=== PATIENT | female | born 1965 | race Caucasian/White ===

== ENCOUNTER 2019-04-04 08:12 | Outpatient (CLI) | payer OTHER, SELFPAY ==
--- NOTE | ~2019-04-04 | MM_ITS ---
EXAMINATION: MM screening vickie BI w savanah HISTORY: Screening mammogram TECHNIQUE: Craniocaudal and mediolateral oblique 3-D tomosynthesis images were obtained and synthetic 2-D images were generated. CAD analysis was submitted and interpreted. COMPARISON: Comparison to multiple prior studies sequentially, with oldest reviewed study dated 07/17. BREAST PARENCHYMAL COMPOSITION: There are scattered areas of fibroglandular density. FINDINGS: There is no evidence of suspicious mass, calcification, or architectural distortion to sugg est malignancy in either breast. There has been no suspicious interval change. IMPRESSION: 1. No mammographic evidence of malignancy. 2. Recommend routine screening mammography in one year. BI-RADS Category 1: Negative Reviewed, dictated and finalized at location A. 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
== END 2019-04-04 08:13 | disposition home or self-care (01) ==
LOC: ANHIMG 08:20
PROVIDERS: PCP Emergency Medicine
DX: Z12.31 Encounter for screening mammogram for malignant neoplasm of breast (principal)
CPT/HCPCS: 77063; 77067

== ENCOUNTER 2020-03-14 15:39 | Outpatient (CLI) | payer OTHER, SELFPAY ==
--- NOTE | ~2020-03-14 | XR_ITS ---
EXAMINATION: XR knee LT 3V DATE: 03/14/2020 16:15 INDICATION: Left knee arthroplasty. TECHNIQUE: 4 views of left knee were obtained. COMPARISON: Left knee radiographs 01/22/2019 FINDINGS: There is a total left knee arthroplasty with patellar resurfacing in near-anatomic alignmen t. No periprosthetic lucency to suggest loosening or infection. No fracture. There is a small knee rod int effusion. IMPRESSION: 1. Total left knee arthroplasty in near-anatomic alignment. 2. Small left knee joint effusion. Reviewed, dictated and finalized at location A. 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
--- NOTE | ~2020-03-14 | XR_ITS ---
EXAMINATION: XR knee RT 3V DATE: 03/14/2020 16:15 INDICATION: Right knee arthroplasty. TECHNIQUE: 3 views of right knee were obtained. COMPARISON: Right knee radiographs 10/06/2018 FINDINGS: There is a total right knee arthroplasty with patellar resurfacing in near-anatomic alignme nt. No fracture. No periprosthetic lucency to suggest loosening or infection. There is a small knee j oint effusion. IMPRESSION: 1. Total right knee arthroplasty in near-anatomic alignment. 2. Small right knee joint effusion. Reviewed, dictated and finalized at location A. TS INTERNSHIP
== END 2020-03-14 15:40 | disposition home or self-care (01) ==
PROVIDERS: PCP Emergency Medicine; Visit Provider Orthopaedic Surgery
DX: Z96.653 Presence of artificial knee joint, bilateral (principal); Z96.651 Presence of right artificial knee joint; M25.461 Effusion, right knee
CPT/HCPCS: 73562

== ENCOUNTER → 2020-05-06 08:30 | Outpatient (REF) | payer OTHER, SELFPAY | LOC: ANHLAB 08:30 | PROVIDERS: PCP Emergency Medicine; Visit Provider Nurse Practitioner | DX: C44.529 Squamous cell carcinoma of skin of other part of trunk (principal) | CPT/HCPCS: 88305 ==

== ENCOUNTER → 2020-05-26 10:00 | Outpatient (REF) | payer OTHER, SELFPAY | LOC: ANHLAB 10:00 | PROVIDERS: PCP Emergency Medicine; Visit Provider Nurse Practitioner | DX: L98.9 Disorder of the skin and subcutaneous tissue, unspecified (principal) | CPT/HCPCS: 88305; 88331 ==

== ENCOUNTER 2020-07-09 08:32 | Outpatient (CLI) | payer OTHER, SELFPAY ==
[2020-07-09 09:10] LABS: Alanine Aminotransferase 10 U/L (4-35); Alkaline Phosphatase 69 U/L (38-126); Anion Gap 5 mmol/L (8-16); Aspartate Amino Transferase 23 U/L (14-36); Bilirubin,Total 0.4 mg/dL (0.2-1.3); Blood Urea Nitrogen 18 mg/dL (7-17); Carbon Dioxide 28 mmol/L (22-30); Chloride 108 mmol/L (98-107); Cholesterol 199 mg/dL (0-200); Estimated Glomerular Filt Rate > 60; Glucose 95 mg/dL (65-105); HDL Direct 71 mg/dL; Potassium 4.6 mmol/L (3.4-5.0); Sodium 141 mmol/L (137-145); Triglycerides 59 mg/dL (<150)
[2020-07-09 09:21] LABS: LDL Cholesterol Direct 93 mg/dL
[2020-07-15 13:51] LABS: Vitamin D 1,25 (OH)2 Total 25 pg/mL (18-72); Vitamin D2 1,25 (OH)2 <8 pg/mL; Vitamin D3 1,25 (OH)2 25 pg/mL
== END 2020-07-09 08:33 | disposition home or self-care (01) ==
PROVIDERS: PCP Emergency Medicine; Visit Provider Emergency Medicine
DX: M83.9 Adult osteomalacia, unspecified (principal); Z13.220 Encounter for screening for lipoid disorders
CPT/HCPCS: 36415; 80053; 80061; 82652

== ENCOUNTER 2020-07-15 15:53 | Outpatient (CLI) | payer OTHER, SELFPAY ==
--- NOTE | ~2020-07-15 | MM_ITS ---
EXAMINATION: MM screening vickie BI w savanah HISTORY: Screening mammogram TECHNIQUE: Craniocaudal and mediolateral oblique 3-D tomosynthesis images were obtained and synthetic 2-D images were generated. CAD analysis was submitted and interpreted. COMPARISON: April 04, 2019, March 30, 2018, March 28, 2017 bilateral digital screening mammo gram examinations BREAST PARENCHYMAL COMPOSITION: There are scattered areas of fibroglandular density. FINDINGS: There is no evidence of suspicious mass, calcification, or architectural distortion to sugg est malignancy in either breast. There has been no suspicious interval change. IMPRESSION: 1. No mammographic evidence of malignancy. 2. Recommend routine screening mammography in one year. BI-RADS Category 1: Negative Reviewed, dictated and finalized at location A.
== END 2020-07-15 15:54 | disposition home or self-care (01) ==
LOC: ANHIMG 15:56
PROVIDERS: PCP Emergency Medicine; Visit Provider Obstetrics & Gynecology
DX: Z12.31 Encounter for screening mammogram for malignant neoplasm of breast (principal)
CPT/HCPCS: 77063; 77067

== ENCOUNTER 2021-09-15 07:35 | Outpatient (CLI) | payer BC, SELFPAY ==
--- NOTE | ~2021-09-15 | MM_ITS ---
EXAMINATION: MM screening [facility] BI w savanah HISTORY: Screening mammogram TECHNIQUE: Craniocaudal and mediolateral oblique 3-D tomosynthesis images were obtained and synthetic 2-D images were generated. CAD analysis was submitted and interpreted. COMPARISON: 07/15/2020, 04/04/2019, 03/30/2018 BREAST PARENCHYMAL COMPOSITION: The breasts are heterogeneously dense, which may obscure small masses . FINDINGS: There is no suspicious mass, calcification, or architectural distortion to suggest malignan cy in either breast. There has been no suspicious interval change. IMPRESSION: 1. No mammographic evidence of malignancy. 2. Recommend routine screening mammography in one year. BI-RADS Category 1: Negative Reviewed, dictated and finalized at location A.
== END 2021-09-15 07:36 | disposition home or self-care (01) ==
PROVIDERS: PCP Emergency Medicine; Visit Provider Obstetrics & Gynecology
DX: Z12.31 Encounter for screening mammogram for malignant neoplasm of breast (principal)
CPT/HCPCS: 77063; 77067

== ENCOUNTER 2021-10-26 13:50 | Outpatient (CLI) | payer BC, SELFPAY ==
[2021-10-26 14:32] LABS: Alanine Aminotransferase 17 U/L (6-35); Albumin Level 4.1 g/dL (3.5-5.1); Alkaline Phosphatase 80 U/L (38-126); Anion Gap 8 mmol/L (8-16); Aspartate Amino Transferase 23 U/L (14-36); Bilirubin,Total 0.5 mg/dL (0.2-1.3); Blood Urea Nitrogen 15 mg/dL (7-17); Calcium 8.7 mg/dL (8.4-10.2); Carbon Dioxide 25 mmol/L (22-30); Chloride 104 mmol/L (98-107); Estimated Glomerular Filt Rate > 60; Glucose 95 mg/dL (65-110); Potassium 3.8 mmol/L (3.4-5.0); Sodium 137 mmol/L (137-145)
[2021-10-29 16:53] LABS: Vitamin D 1,25 (OH)2 Total 46 pg/mL (18-72); Vitamin D2 1,25 (OH)2 <8 pg/mL; Vitamin D3 1,25 (OH)2 46 pg/mL
== END 2021-10-26 13:51 | disposition home or self-care (01) ==
LOC: ANHLAB 13:53
PROVIDERS: PCP Emergency Medicine; Visit Provider Emergency Medicine
DX: R53.83 Other fatigue (principal); E83.31 Familial hypophosphatemia; M90.80 Osteopathy in diseases classified elsewhere, unspecified site
CPT/HCPCS: 36415; 80053; 82652

== ENCOUNTER 2022-04-09 08:47 | Emergency (ER) | payer BC, SELFPAY ==
[2022-04-09 09:08] VITALS: BP 129/68; PULSE 91; RESP 16; TEMP 35.8; O2SAT 99
--- NOTE | 2022-04-09 09:28 | ED.URI ---
HPI - URI/Sore Throat General Chief Complaint: Upper Respiratory Infection Stated Complaint: poison inocenico/covid + Time Seen by Provider: 04/09/22 09:28 Source: patient Mode of arrival: ambulatory Limitations: no limitations History of Present Illness HPI Narrative: 56 yo F presents with c/o nasal congestion, chest congestion, cough for 5 days. Tested positive for covid 2 days ago. today having R ear pain. Afebrile. Denies CP and SOB. Also states has been working in garden and has poison inocencio to R wrist, chest and mid back. Using OTC hydrocortisone cream. States she usually gets steroids due to severe allergy to poison inocencio . All systems reviewed and negative except as noted above. Related Data Allergies Allergy/AdvReac Type Severity Reaction Status Date / Time Sulfa (Sulfonamide Allergy Mild Swelling Verified 04/09/22 09:23 Antibiotics) Review of Systems Review of Systems: CONSTITUTIONAL: Denies fever, chills, or sweats. EYES: Denies visual changes, redness, or discharge. ENT: reports rhinorrhea, congestion, sore throat, right ear pain. CARDIOVASCULAR: Denies chest pain, palpitations, or edema. RESPIRATORY: Reports cough. Deniesdyspnea. GASTROINTESTINAL: Denies abdominal pain, nausea, vomiting, or diarrhea. GENITOURINARY: Denies dysuria or hematuria. SKIN: Reports poison inocencio rash and itching. MUSCULOSKELETAL: Denies back pain, joint pain, or myalgia. NEUROLOGIC: Denies headache, numbness, or weakness. PSYCHIATRIC: Denies anxiety or depression. All other systems reviewed are negative, except as documented in HPI. [facility] Past Medical History Medical History Asthma Surgical History Surgical History History of appendectomy History of dilatation and curettage History of total knee replacement Bilateral replacements Right 2018, left 2019 [place] teeth removed Family History Family History Sibling Family history of malignant neoplasm of ovary Mother Family history of Alzheimer's disease Other Family history of arthritis Family history of malignant neoplasm Hypertension Social History Social History Smoking status: Former smoker Smoking end date: 02/07/83 Alcohol intake: current Alcohol use details: occasional Comments At time of signature, agree with nursing past medical, surgical, social and family history. There is no relevant family history pertinent to the presenting complaint. Exam Narrative: GENERAL: This is a well-nourished, well-developed patient, in no apparent distress. HEAD: normocephalic, atraumatic. EYES: PERRL. Sclera clear/white. Vision is grossly intact. EARS: External ears normal, auditory canals clear and without drainage, fluid bilateral TMs without erythema or perforation. NOSE: External nose normal with Clear nasal drainage, moderate congestion, erythema to both nares without swelling. THROAT: Mucous membranes moist, Mild erythema with postnasal drainage. NECK: Neck supple, non-tender without lymphadenopathy, masses or thyromegaly. CARDIOVASCULAR: Regular rate and rhythm without murmurs, gallops, or rubs. RESPIRATORY: Clear to auscultation. Breath sounds equal bilaterally. No wheezes, rales, or rhonchi. SKIN: warm, Dry, intact with no suspicious lesions, good texture and turgor. Raised erythematous rash to right medial aspect wrist, chest and right side mid back. NEURO: awake, alert, and oriented to person, place and time. There were no obvious focal neurologic abnormalities. EXTREMITIES: No joint tenderness, effusion, or edema noted. Course Course Level of Care: Express Care Visit Vital Signs Vital signs: Vital Signs Temperature 35.8 C L 04/09/22 09:08 Pulse Rate 91 04/09/22 09:08 Respiratory Rate 16 04/09/22 09:08 Blood Press
== END 2022-04-09 10:00 | disposition home or self-care (01) ==
PROVIDERS: Emergency Provider Nurse Practitioner Family; PCP Emergency Medicine
DX: U07.1 COVID-19 (principal); L25.5 Unspecified contact dermatitis due to plants, except food; J45.909 Unspecified asthma, uncomplicated; Z87.891 Personal history of nicotine dependence
CPT/HCPCS: 87081; 87880; 99213; G0463

== ENCOUNTER 2022-05-28 16:54 | Outpatient (CLI) | payer BC, SELFPAY ==
--- NOTE | ~2022-05-28 | XR_ITS ---
Clinical Indication: Chronic cough PA and lateral views of the chest: Comparison: 08/16/2012 Findings: The lungs are clear, without evidence of focal consolidation or pleural effusion. Cardiome diastinal silhouette is within normal limits. Bones and soft tissues are unremarkable. Impression: Normal chest. Reviewed, dictated and finalized at location . Impression: Normal chest.
== END 2022-05-28 16:55 | disposition home or self-care (01) ==
LOC: ANHIMG 16:57
PROVIDERS: PCP Emergency Medicine; Visit Provider Emergency Medicine
DX: R05.3 Chronic cough (principal)
CPT/HCPCS: 71046

== ENCOUNTER 2022-12-16 07:15 | Outpatient (CLI) | payer BC, SELFPAY ==
--- NOTE | ~2022-12-16 | MM_ITS ---
EXAMINATION: MM screening vickie BI w savanah HISTORY: Screening TECHNIQUE: Craniocaudal and mediolateral oblique 3-D tomosynthesis images were obtained and synthetic 2-D images were generated. CAD analysis was submitted and interpreted. COMPARISON: Comparison to multiple prior studies sequentially, with oldest reviewed study dated 03/24. BREAST PARENCHYMAL COMPOSITION: Breast composed of scattered areas of fibroglandular density FINDINGS: There is no evidence of suspicious mass, calcification, or architectural distortion to sugg est malignancy in either breast. There has been no suspicious interval change. IMPRESSION: 1. No mammographic evidence of malignancy. 2. Recommend routine screening mammography in one year. BI-RADS Category 1: Negative Reviewed, dictated and finalized at location A. RNEY
== END 2022-12-16 07:16 | disposition home or self-care (01) ==
PROVIDERS: PCP Emergency Medicine; Visit Provider Emergency Medicine
DX: Z12.31 Encounter for screening mammogram for malignant neoplasm of breast (principal)
CPT/HCPCS: 77063; 77067

== ENCOUNTER 2023-01-13 17:42 | Outpatient (CLI) | payer BC, SELFPAY ==
--- NOTE | ~2023-01-13 | XR_ITS ---
EXAMINATION: XR knee LT 3V DATE: 01/13/2023 18:07 INDICATION: Knee pain. TECHNIQUE: 3 views of left knee were obtained. COMPARISON: Left knee radiographs 03/14/2020 FINDINGS: There is a total left knee arthroplasty with patellar resurfacing in near-anatomic alignmen t. No fracture. No periprosthetic lucency to suggest loosening or infection. No knee joint effusion. IMPRESSION: 1. Total left knee arthroplasty in near-anatomic alignment. Reviewed, dictated and finalized at location E. RVISOR DRYING
--- NOTE | ~2023-01-13 | XR_ITS ---
EXAMINATION: XR knee RT 3V DATE: 01/13/2023 18:07 INDICATION: Right knee pain. TECHNIQUE: 3 views of right knee were obtained. COMPARISON: Right knee radiographs 03/14/2020 FINDINGS: There is a total right knee arthroplasty with patellar resurfacing in near-anatomic alignme nt. No fracture. No periprosthetic lucency to suggest loosening or infection. No knee joint effusion. IMPRESSION: 1. Total right knee arthroplasty in near-anatomic alignment. Reviewed, dictated and finalized at location E. 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
== END 2023-01-13 17:43 | disposition home or self-care (01) ==
PROVIDERS: PCP Emergency Medicine; Visit Provider Orthopaedic Surgery
DX: M25.561 Pain in right knee (principal); M25.562 Pain in left knee; Z96.653 Presence of artificial knee joint, bilateral
CPT/HCPCS: 73562

== ENCOUNTER 2023-04-17 14:25 | Outpatient (CLI) | payer BC, SELFPAY ==
--- NOTE | ~2023-04-17 | XR_ITS ---
EXAMINATION: XR knee RT 3V DATE: 04/17/2023 14:44 INDICATION: Presence of artificial knee joint, bilateral. TECHNIQUE: 3 views of right knee including standing views were obtained. COMPARISON: Right knee radiographs 01/13/2023 FINDINGS: There is a total right knee arthroplasty with patellar resurfacing in near-anatomic alignme nt. No fracture. No periprosthetic lucency to suggest loosening or infection. There is a small knee j oint effusion. IMPRESSION: 1. Total right knee arthroplasty in near-anatomic alignment. 2. Small right knee joint effusion. Reviewed, dictated and finalized at location E.
--- NOTE | ~2023-04-17 | XR_ITS ---
EXAMINATION: XR knee LT 3V DATE: 04/17/2023 14:44 INDICATION: Presence of artificial knee joint, bilateral. TECHNIQUE: 3 views of left knee including standing views were obtained. COMPARISON: Radiographs 01/13/2023 FINDINGS: There is a total left knee arthroplasty with patellar resurfacing in near-anatomic alignmen t. No fracture. No periprosthetic lucency to suggest loosening or infection. There is a small knee rod int effusion. IMPRESSION: 1. Total left knee arthroplasty in near-anatomic alignment. 2. Small left knee joint effusion. Reviewed, dictated and finalized at location E.
== END 2023-04-17 14:26 | disposition home or self-care (01) ==
LOC: ANHIMG 14:28
PROVIDERS: PCP Emergency Medicine; Visit Provider Orthopaedic Surgery
DX: Z96.653 Presence of artificial knee joint, bilateral (principal); M25.461 Effusion, right knee; M25.462 Effusion, left knee
CPT/HCPCS: 73562

== ENCOUNTER 2023-06-14 10:20 | Outpatient (CLI) | payer BC, SELFPAY ==
--- NOTE | 2023-06-27 12:48 | WPDSLEEPSTUD ---
Sleep Study Date of Study: 06/14/23 Ordering Provider: Renny Guidry DO Interpreting Physician: Sue Cantor MD Sleep Study Type: Polysomnogram Height: 1.63 m Weight: 79.379 kg Body Mass Index: 30.0 Neck Circumference (inches): 13.5 [place]: 10 Reason for Sleep Study Hypersomnolence Sleep History Ingrid Quinn is a 58-year-old woman with loud snoring that wakes up other people. She has had palpitations. In February 2023 she had heart fluttering. She has been noted to have atrial fibrillation. She never awakens from sleep short of breath. She occasionally wakes at night with heartburn, belching or coughing.??She frequently snores, and it is frequently loud enough that others complain. She occasional has trouble sleeping when she has a cold. She rarely wakes up gasping for breath during the night. She never has breathing problems at night. She rarely sweats excessively at night. She occasionally notices her heart pounding or beating irregularly during the night. She never falls asleep during the day. She never falls asleep involuntarily, never falls asleep while driving. She never experiences loss of muscle tone with strong emotion. She never feels paralyzed on waking or falling asleep. She never experiences vivid dreams upon waking or falling asleep. She never feels afraid of going to sleep. She never has nightmares. She rarely recalls her dreams. She occasionally has thoughts racing through her mind. She rarely feels sad or depressed. She rarely feels anxiety. She occasionally notices parts of her body jerk. She rarely kicks during the night. She rarely feels crawling or aching feelings in her legs. She occasionally feels leg cramps at night. She rarely has morning jaw pain, does not grind her teeth at night. She rarely feels bothered by pain during the day, is never awakened by pain during the night. She rarely wakes up feeling stiff in the morning, rarely wakes feeling sore or achy in the morning. She rarely awakens with pain in her neck, spine, or joints. Normal bedtime is 12 midnight, falling asleep within minutes, waking 3-4 times at night to go to the bathroom, reposition. She is able to return to sleep in a few minutes. She wakes between 6:30 a.m.and 7:00 a.m., keeps a similar schedule on the weekends P. She may go to sleep as late as 1:00 a.m. and wake between 7:30 a.m. and 8:30 a.m.. Sometimes her sleep is disturbed by her cat. She is a light sleeper. She generally does not take naps, may sit afternoons for a quick shut-eye, a few minutes. A short nap lasting 10-15 minutes may be refreshing. Habits:??Tobacco: Minimal remote smoking in her late teens. Caffeine: 3-4 servings per day Alcohol: Not daily, 2 drinks when she does consume Recreational substances: tried Snoozeberry chocolate bar, Cannibis-infused chocolate PMFSH Past Medical History Medical History Asthma Bilateral medial epicondylitis of elbow joint Surgical History Surgical History History of appendectomy History of dilatation and curettage History of total knee replacement Bilateral replacements Right 2018, left 2019 [place] teeth removed Family History Family History Sibling Family history of malignant neoplasm of ovary Mother Family history of Alzheimer's disease Other Family history of arthritis Family history of malignant neoplasm Hypertension Social History Social History Smoking status: Former smoker Smoking end date: 02/07/83 Alcohol intake: current Alcohol use details: occasional Do You Feel Safe in your Home?: Yes Lack of Transportation: No Lack of Food: Never True Current Housing: I Have Housing Concerned About Future Housing: No Difficulty Paying Gas/Electric Bills: No
== END 2023-06-15 07:02 | disposition home or self-care (01) ==
LOC: ANHCSM 10:20
PROVIDERS: PCP Emergency Medicine; Visit Provider Internal Medicine Cardiovascular Disease
DX: G47.10 Hypersomnia, unspecified (principal); I48.0 Paroxysmal atrial fibrillation
CPT/HCPCS: 95810

== ENCOUNTER 2023-07-07 07:35 | Outpatient (CLI) | payer BC, SELFPAY ==
--- NOTE | 2023-07-07 07:42 | EST_ITS ---
Patient Info Name: Ingrid Quinn Age: 58 years : 1965 Gender: Female Ht: 65 in Wt: 175 lbs BSA: 1.93 m2 HR: 65 bpm BP: 125 / 86 mmHg Heart Rhythm: Sinus Rhythm Exam Date: 07/07/2023 8:52 AM Site Location: [facility] Exam Location: Patient Status: Outpatient Admit Date: 07/07/2023 Staff Ordering Physician: Renny Guidry DO Attending Provider: Renny Guidry DO Exercise Technologist: Elaine Medley CT Exercise Physician: Renny Guidry DO Exam Type: CA stress test treadmill Study Info Indications I48.0 - Paroxysmal atrial fibrillation A treadmill exercise stress test was performed. Summary 1. 1. Negative Moy exercise stress test for ischemic ST changes by ECG criteria. 2. 2. Good functional capacity, achieving 7 METs of workload. 3. 3. Frequent ventricular ectopics. 4. 4. Appropriate HR response to exercise. 5. 5. Appropriate HR recovery at 1 minute post exercise. 6. 6. No imaging with stress testing. 7. 7. Patient informed of the above results. Protocol: Moy Stress ECG Details Stage: REST Duration (min): 1 min : 6 sec Speed (mph): 0.0 Grade (%): 0 HR (bpm): 66 SBP (mmHg): 125 DBP (mmHg): 86 METS: --- Stage: REST Duration (min): 6 min : 52 sec Speed (mph): 0.0 Grade (%): 0 HR (bpm): 78 SBP (mmHg): 125 DBP (mmHg): 86 METS: --- Stage: STAGE 1 Duration (min): 1 min : 0 sec Speed (mph): 1.7 Grade (%): 10 HR (bpm): 106 SBP (mmHg): 125 DBP (mmHg): 86 METS: --- Stage: STAGE 1 Duration (min): 2 min : 0 sec Speed (mph): 1.7 Grade (%): 10 HR (bpm): 122 SBP (mmHg): 125 DBP (mmHg): 86 METS: --- Stage: STAGE 1 Duration (min): 3 min : 0 sec Speed (mph): 1.7 Grade (%): 10 HR (bpm): 121 SBP (mmHg): 151 DBP (mmHg): 91 METS: --- Stage: STAGE 2 Duration (min): 1 min : 0 sec Speed (mph): 2.5 Grade (%): 12 HR (bpm): 130 SBP (mmHg): 151 DBP (mmHg): 91 METS: --- Stage: STAGE 2 Duration (min): 2 min : 0 sec Speed (mph): 2.5 Grade (%): 12 HR (bpm): 140 SBP (mmHg): 183 DBP (mmHg): 93 METS: --- Stage: STAGE 2 Duration (min): 3 min : 0 sec Speed (mph): 2.5 Grade (%): 12 HR (bpm): 139 SBP (mmHg): 183 DBP (mmHg): 93 METS: --- Stage: RECOVERY Duration (min): 0 min : 59 sec Speed (mph): 0.0 Grade (%): 0 HR (bpm): 115 SBP (mmHg): 158 DBP (mmHg): 91 METS: --- Stage: RECOVERY Duration (min): 1 min : 53 sec Speed (mph): 0.0 Grade (%): 0 HR (bpm): 94 SBP (mmHg): 158 DBP (mmHg): 91 METS: --- Rest HR: 78 bpm Peak HR: 142 bpm Rest Sys BP: 125 mmHg Peak Sys BP: 183 mmHg Max Pred HR: 160 bpm % Max Pred HR: 89 % Target HR: 136 bpm Max RPP: 25,986 bpm*mmHg Zazueta Score: 1 Termination Reason: Reached target heart rate or workload Cardiac Symptoms: Shortness of breath Max ST Seg Deviation: -1.10 mm Total Time: 6 min : 0 sec Rest Cormier BP: 86 mmHg Peak Cormier BP: 93 mmHg Angina Score: None Total METS: 7.1 Resting ECG Sinus rhythm. Stress ECG No ST marcano
--- NOTE | 2023-07-07 07:42 | ECHO_ITS ---
Patient Info Name: Ingrid Quinn Age: 58 years : 1965 Gender: Female Ht: 65 in Wt: 178 lbs BSA: 1.95 m2 HR: 65 bpm BP: 105 / 67 mmHg Technical Quality: Fair Exam Date: 07/07/2023 8:06 AM Exam Location: Echo Lab Patient Status: Outpatient Admit Date: 07/07/2023 Staff Ordering Physician: Renny Guidry DO Field Contractor: Heath Soni RDCS Attending Provider: Renny Guidry DO Referring Physician: Chao ROMERO; Exam Type: CA echo doppler color flow Study Info Indications I48.0 - Paroxysmal atrial fibrillation Complete two-dimensional, color flow and Doppler transthoracic echocardiogram is performed. Summary 1. Complete two-dimensional, color flow and Doppler transthoracic echocardiogram is performed. 2. Left ventricular systolic function is preserved, estimated at 50-55%. 3. Left ventricular chamber dimension is normal. 4. The left ventricular diastolic function is grade I diastolic dysfunction. 5. E/e' 9 is minimally elevated. 6. Left atrial chamber dimension is mildly enlarged. 7. There is trace mitral valve regurgitation. 8. There is trace tricuspid valve regurgitation. 9. No pulmonary hypertension, estimated pulmonary arterial systolic pressure is 21 mmHg. Left Ventricle E/e' 9 is minimally elevated. Left ventricular systolic function is preserved, estimated at 50-55%. Left ventricular chamber dimension is normal. The left ventricular diastolic function is grade I diastolic dysfunction. Right Ventricle Right ventricular chamber dimension is normal. Right ventricular systolic function is normal. Left Atria Left atrial chamber dimension is mildly enlarged. Right Atria Right atrial chamber dimension is normal. Aortic Valve The aortic valve is trileaflet. There is no aortic valve stenosis. There is no aortic valve regurgitation. Pulmonic Valve There is no pulmonic regurgitation. Mitral Valve There is no mitral valve stenosis. There is trace mitral valve regurgitation. Tricuspid Valve There is trace tricuspid valve regurgitation. No pulmonary hypertension, estimated pulmonary arterial systolic pressure is 21 mmHg. Pericardium/Pleural There is no pericardial effusion. Inferior Vena Cava Normal inferior vena cava with >50% collapse upon inspiration consistent with normal right atrial pressure, 5 mmHg. Aorta The aortic root size at the sinus of Valsalva is normal. Left Ventricular Outflow Tract Name Value Normal LVOT 2D LVOT Diameter 2.0 cm LVOT Doppler LVOT Peak Gradient 3 mmHg LVOT Mean Gradient 2 mmHg LVOT VTI 19 cm LVOT VTI/AV VTI Ratio 0.6 LVOT Stroke Volume 62 ml LVOT CO 4.2 l/min LVOT CI 2.2 l/min/m2 Pulmonic Valve Name Value Normal RVOT Doppler RVOT Peak Gradient 1 mmHg
== END 2023-07-07 07:36 | disposition home or self-care (01) ==
PROVIDERS: PCP Emergency Medicine; Visit Provider Internal Medicine Cardiovascular Disease
DX: I48.0 Paroxysmal atrial fibrillation (principal); R00.2 Palpitations; I51.89 Other ill-defined heart diseases
CPT/HCPCS: 36415; 84443; 93017; 93306

== ENCOUNTER 2023-08-08 15:56 | Outpatient (CLI) | payer BC, SELFPAY ==
--- NOTE | ~2023-08-08 | CT_ITS ---
EXAMINATION: CT sinus wo con DATE: 08/08/2023 16:14 INDICATION: Nasal congestion. TECHNIQUE: Computed tomography (CT) of the paranasal sinuses was performed without intravenous contra st. Iterative reconstruction technique was employed. The dose-length product was 380.38 mGy-cm. COMPARISON: None FINDINGS: There is mild mucosal thickening in the ethmoid sinuses and frontal recesses. The sphenoid sinuses are clear. There is mild mucosal thickening in the maxillary sinuses. There is leftward devia tion of the nasal septum. The ostiomeatal units are patent. IMPRESSION: 1. Mild mucosal thickening in the paranasal sinuses. 2. Leftward deviation of the nasal septum. Reviewed, dictated and finalized at location A.
== END 2023-08-08 15:57 ==
PROVIDERS: PCP Emergency Medicine; Visit Provider Emergency Medicine
DX: J34.2 Deviated nasal septum (principal); J34.89 Other specified disorders of nose and nasal sinuses; R09.81 Nasal congestion
CPT/HCPCS: 70486

== ENCOUNTER 2024-01-16 07:28 | Outpatient (CLI) | payer BC, SELFPAY ==
--- NOTE | ~2024-01-16 | MM_ITS ---
EXAMINATION: MM screening vickie BI w savanah HISTORY: Screening TECHNIQUE: Craniocaudal and mediolateral oblique 3-D tomosynthesis images were obtained and synthetic 2-D images were generated. CAD analysis was submitted and interpreted. COMPARISON: Comparison to multiple prior studies sequentially, with oldest reviewed study dated 03/28. BREAST PARENCHYMAL COMPOSITION: Not dense: There are scattered areas of fibroglandular density. FINDINGS: There is no evidence of suspicious mass, calcification, or architectural distortion to sugg est malignancy in either breast. There has been no suspicious interval change. IMPRESSION: 1. No mammographic evidence of malignancy. 2. Recommend routine screening mammography in one year. BI-RADS Category 1: Negative Reviewed, dictated and finalized at location [] S OFFICER
== END 2024-01-16 07:29 | disposition home or self-care (01) ==
LOC: ANHIMG 07:32
PROVIDERS: PCP Emergency Medicine; Visit Provider Obstetrics & Gynecology
DX: Z12.31 Encounter for screening mammogram for malignant neoplasm of breast (principal)
CPT/HCPCS: 36415; 77063; 77067; 80053; 82306

== ENCOUNTER 2024-01-16 08:16 | Outpatient (CLI) | payer BC, SELFPAY ==
[2024-01-16 09:19] LABS: Alanine Aminotransferase 13 U/L (6-35); Albumin Level 3.9 g/dL (3.5-5.1); Alkaline Phosphatase 73 U/L (38-126); Anion Gap 3 mmol/L (4-12); Aspartate Amino Transferase 23 U/L (14-36); Bilirubin,Total 0.7 mg/dL (0.2-1.3); Blood Urea Nitrogen 17 mg/dL (7-17); Calcium 8.4 mg/dL (8.4-10.2); Carbon Dioxide 28 mmol/L (22-30); Chloride 107 mmol/L (98-107); Estimated Glomerular Filt Rate > 60; Glucose 95 mg/dL (65-110); Potassium 4.3 mmol/L (3.4-5.0); Sodium 138 mmol/L (137-145)
== END 2024-01-16 08:17 | disposition home or self-care (01) ==
LOC: ANHLAB 08:17
PROVIDERS: PCP Emergency Medicine; Visit Provider Emergency Medicine
DX: E78.5 Hyperlipidemia, unspecified (principal); E55.9 Vitamin D deficiency, unspecified
CPT/HCPCS: 36415; 80053; 82306

== ENCOUNTER 2024-02-15 17:19 | Emergency (ER) | payer BC, SELFPAY ==
[2024-02-15 17:29] VITALS: BP 101/69; PULSE 102; RESP 20; TEMP 37; O2SAT 98
[2024-02-15 17:38] VITALS: BP 101/69; PULSE 102; RESP 20; TEMP 37; O2SAT 100
--- NOTE | 2024-02-15 17:52 | ED.URI ---
HPI - URI/Sore Throat General Chief Complaint: Upper Respiratory Infection Stated Complaint: fever x3 days/cough Time Seen by Provider: 02/15/24 17:52 Source: patient Mode of arrival: ambulatory Limitations: no limitations History of Present Illness HPI Narrative: 58-year-old female presents with complaint of fever, cough, fatigue, body aches, chills for the past 3 days. No chest pain or shortness of breath. Has been laying in bed, states drinking very little water. Denies nausea vomiting diarrhea. All systems reviewed and negative except as noted above. Related Data Home Medications ?Medication ?Instructions ?Recorded ?Confirmed ?Last Taken ?Type meloxicam 15 mg tablet 15 mg PO DAILY PRN 05/30/23 01/25/24 Unknown History omeprazole 10 mg capsule,delayed See Rx Instructions .Route 05/30/23 01/25/24 Unknown History release .COMPLEX PRN aspirin 325 mg tablet 325 mg PO DAILY 06/03/23 01/25/24 Unknown History Allergies Allergy/AdvReac Type Severity Reaction Status Date / Time Sulfa (Sulfonamide Allergy Mild Swelling Verified 02/15/24 17:22 Antibiotics) Review of Systems Review of Systems: CONSTITUTIONAL: reports fever, chills, or sweats. EYES: Denies visual changes, redness, or discharge. ENT: Reports rhinorrhea, congestion, sore throat. Denies otalgia. CARDIOVASCULAR: Denies chest pain, palpitations, or edema. RESPIRATORY: reports cough. Denies dyspnea. GASTROINTESTINAL: Denies abdominal pain, nausea, vomiting, or diarrhea. GENITOURINARY: Denies dysuria or hematuria. SKIN: Denies rash or itching. MUSCULOSKELETAL: Denies back pain, joint pain, or myalgia. NEUROLOGIC: Denies headache, numbness, or weakness. PSYCHIATRIC: Denies anxiety or depression. All other systems reviewed are negative, except as documented in HPI. [facility] Past Medical History Medical History Right nephrolithiasis Vitamin D deficiency, unspecified Umbilical hernia without obstruction and without gangrene Subcutaneous mass Right upper quadrant abdominal pain Right lower quadrant pain Right flank pain Rash Pain of left calf Other biotin-dependent carboxylase deficiency Irritant contact dermatitis due to oils Gastro-esophageal reflux disease without esophagitis Dysuria Difficulty sleeping Allergic rhinitis, unspecified Allergic contact dermatitis due to other agents Acute appendicitis with localized peritonitis Actinic keratosis (01/22/15) Bilateral medial epicondylitis of elbow joint Asthma Surgical History Surgical History History of total knee replacement Bilateral replacements Right 2017, left 2019 History of dilatation and curettage [place] teeth removed History of appendectomy Family History Family History Sibling Family history of malignant neoplasm of ovary Mother Family history of Alzheimer's disease Other Family history of arthritis Family history of malignant neoplasm Hypertension Social History Social History Smoking status: Former smoker Smoking end date: 02/07/83 Alcohol intake: current Alcohol use details: occasional Do You Feel Safe in your Home?: Yes Lack of Transportation: No Lack of Food: Never True Current Housing: I Have Housing Concerned About Future Housing: No Difficulty Paying Gas/Electric Bills: No Difficulty Paying for Meds: No Currently Unemployed: No Education: Trade/Vocational Certificate Difficulty w/ Childcare or Family Care: No Comments At time of signature, agree with nursing past medical, surgical, social and family history. There is no relevant family history pertinent to the presenting complaint. Exam Narrative: GENERAL: This is a well-nourished, well-developed patient, patient ill-appearing but no acute distress HEAD: normocephalic, atraumatic. EYES: PERRL. Sclera clear/white. Vision is grossly intact. EARS: External ears normal, auditory canals clear and without drainage, TMs normal without perforation. Hearing grossly intact. NOSE: External nose normal with mild congestion, clear nasal drainage THROAT: Mucous membranes moist, mild erythema without significant swelling or exudates NECK: Neck supple, non-tender without lymphadenopathy, masses or thyromegaly. CARDIOVASCULAR: Regular rate and rhythm without murmurs, gallops, or rubs. RESPIRATORY: Clear to auscultation. Breath sounds equal bilaterally. No wheezes, rales, or rhonchi. SKIN: warm, Dry, intact with no suspicious lesions or rash, good texture and turgor. NEURO: awake, alert, and oriented to person, place and time. There were no obvious focal neurologic abnormalities. EXTREMITIES: No joint tenderness, effusion, or edema noted. Course Course Level of Care: Express Care Visit Vital Signs Vital signs: Vital Signs Temperature 37.0 C 02/15/24 17:29 Pulse Rate 102 H 02/15/24 17:29 Respiratory Rate 20 02/15/24 17:29 Blood Pressure 101/69 02/15/24 17:29 Pulse Oximetry 98 02/15/24 17:29 Oxygen Delivery Room Air 02/15/24 17:29 Temperature 37.0 C 02/15/24 17:38 Pulse Rate 102 H 02/15/24 17:38 Respiratory Rate 20 02/15/24 17:38 Blood Pressure 101/69 02/15/24 17:38 Pulse Oximetry 100 02/15/24 17:38 Oxygen Delivery Room Air 02/15/24 17:38 reviewed MDM - URI/Sore Throat MDM Narrative Medical decision making narrative: Patient is aware of diagnosis, understands and agrees to treatment plan. Anticipatory guidance given. Patient agrees to follow-up as directed and is aware of reasons to seek care at the emergency department. Portions of this record may have been created with voice recognition software patient positive for influenza A. Prescribed Tamiflu at patient's request. Lungs clear to auscultation. Ill-appearing but nontoxic. Lab Data Labs: Lab Results 02/15/24 Range/Units 17:33 POC Influenza A Ag Positive (Negative) POC Influenza B Ag Negative (Negative) POC SARS CoV-2 Ag Negative (Negative) Discharge Plan Discharge Clinical Impression: Influenza A Patient Disposition: Home, Self-Care Condition: Stable Instructions: Influenza (ED) Additional Instructions: you were positive for influenza today. Influenza virus and symptoms may last 10-14 days. Take an [id number] medication to treat her symptoms such as Mucinex DM. Alternate between ibuprofen and Tylenol every 6-8 hours as needed for pain and fever. Drink at least 64 oz of water a day. Follow-up with your primary care physician if symptoms are not improving. Patient Language: Vietnamese Prescriptions: New oseltamivir [Tamiflu] 75 mg capsule 75 mg PO Q12H 5 Days Qty: 10 0RF No Action meloxicam 15 mg tablet 15 mg PO DAILY PRN omeprazole 10 mg capsule,delayed release(DR/EC) See Rx Instructions .ROUTE .COMPLEX PRN Dose Instruction: TAKE 1 CAPSULE BY MOUTH DAILY Rx Instructions: TAKE 1 CAPSULE BY MOUTH DAILY PRN; albuterol sulfate [ProAir HFA] 90 mcg/actuation HFA aerosol inhaler 1 inh inhalation Q4H PRN (Reason: shortness of breath or wheezing) Qty: 8.5 1RF aspirin 325 mg tablet 325 mg PO DAILY montelukast 10 mg tablet See Rx Instructions .ROUTE .COMPLEX Qty: 90 2RF Dose Instruction: TAKE 1 TABLET BY MOUTH DAILY Rx Instructions: TAKE 1 TABLET BY MOUTH DAILY metoprolol succinate 25 mg tablet extended release 24 hr See Rx Instructions .ROUTE .COMPLEX Qty: 30 5RF Dose Instruction: TAKE 1 TABLET BY MOUTH DAILY Rx Instructions: TAKE 1 TABLET BY MOUTH DAILY lisdexamfetamine 20 mg capsule 20 mg PO DAILY Qty: 30 0RF Follow-up/Referrals: Wei Mcdonald MD [Primary Care Provider] - Time of Disposition: 18:01
[2024-02-15 17:57] LABS: EDCOVIDSCREEN Negative (Negative)
[2024-02-15 17:58] LABS: EDINFLUASCREEN Positive (Negative); EDINFLUBSCREEN Negative (Negative)
== END 2024-02-15 18:10 | disposition home or self-care (01) ==
PROVIDERS: Emergency Provider Nurse Practitioner Family; PCP Emergency Medicine
DX: J10.1 Influenza due to other identified influenza virus with other respiratory manifestations (principal); Z87.891 Personal history of nicotine dependence; Z20.822 Contact with and (suspected) exposure to COVID-19
CPT/HCPCS: 87426; 87804; 99213; G0463

== ENCOUNTER 2024-07-06 07:57 | Outpatient (CLI) | payer BC, SELFPAY ==
--- OUTSIDE RECORDS SUMMARY | 2024-07-06 08:00 | XMS_ITS | Continuity of Care Document ---
Author Organization [facility] Address [address] [facility] [address] [place] [address] Phone Care Team Providers Care Patient Appointment Coordinator Name Role Phone Tim Sexton MD Unavailable Unavailable Allergies, Adverse Reactions, Alerts Substance Reaction Status Criticality No Known Allergies Active No Inform ation Medications Medication Instructions Dosage Effective Dates (start - stop) Status Comments Zyrtec 10 mg tablet - Active OMEPRAZOLE (unknown strength) Not Available - Active Procedures Procedure Date Office/outpatient visit,[facility] 2016 Advance Directives Directive Yes / No Effective Date File Name No Information Encounters Encounter Description Practice Location Reason(s) For Visit Diagnoses Date Provider Providers Copied on Encounter Office/outpat ient visit,[facility], [address] [place] [address], [id number], tel:[phone] [facility] Right knee (chief complaint) Unilateral primary osteoarthrit is, right knee Darshan Dumont. [address] [place] [address], [place] [address], [place], [place], [id number] , [place]. tel:[phone] Family History Family Member Type Diagnosis Age At Onset Father Problem (finding) hypertension Sister Problem (finding) Cancer, unknown Father Problem (finding) Arthritis Payers Payer name Insurance type Covered alliance party ID Authornellia tisherice(s) [facility] CI [id number] Social History Type Description Quantity Date Captured [...]
--- OUTSIDE RECORDS SUMMARY | 2024-07-06 08:00 | XMS_ITS | Clinical Summary ---
Author Organization [facility] [address] [employer] Address [address] [place] [address] Care Team Providers Care Batch Unit Treater Name Role Phone Wei Mcdonald MD Primary Care Provide r Allergies Active Allergy Reactions Criticality Noted Date Comments Sulfa (Sulfonamide Antibiotics) Swelling Medium 07/08 Medications omeprazole (PriLOSEC) 10 mg capsule as needed 3 Active meloxicam (MOBIC) 15 mg tablet as needed 3 Active montelukast (SINGULAIR) 10 mg tablet as needed 3 Active lisdexamfetamine (VYVANSE) 20 mg capsule 1 capsule (20 mg total) 4 Active metoprolol XL (TOPROL-XL) 25 mg extended release tablet 1 tablet (25 mg total) 4 Active aspirin 325 mg enteric coated tablet Take 1 tablet (325 mg total) by mouth daily Active azelastine-fluti casone 137-50 mcg/spray spray,non-aeroso lIndications:All ergic rhinitis due to pollen, unspecified seasonality Administer 1 spray into affected nostril(s) 2 (two) times a day 23 g 5 4 Active Active Problems Problem Noted Date Diagnosed Date Allergic rhinitis due to pollen 09/12/2023 Deviated nasal septum 09/12/2023 Chronic pansinusitis 09/12/2023 Sensorineural hearing loss (SNHL) of both ears 0 07/20/2022 Tinnitus of both ears 07/20/2022 Surgical History Surgery Date Site/Laterality Comments WISDOM TOOTH EXTRACTION APPENDECTOMY REPLACEMENT TOTAL KNEE Bilateral 2018 & 2019 Medical History Medical History Date Comments Allergic rhinitis Asthma Tinnitus HL (hearing loss) Family History Medical History Relation Name Comments Cancer Sister Relation Name Status Comments Sister Social History Tobacco Use Types Packs/Day Years Used Date Smoking Tobacco: Former Cigarettes Q uit: 1985 Smokeless Tobacco: Never Tobacco Cessation:Counseling Given: Not Answered AUDIT-C Answer Date Recorded Q1: How often do you have a drink containing alc ohol? Monthly or less 07/20/2022 Q2: How many drinks containi ng alcohol do you have on a typical day when you are drinking? 1 or 2 07/20/2022 Q3: How often do you have si x or more drinks on one occasion? 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 Gender Identity Not on file Sexual Orientation Not on file Obstetrics History Last Filed Vital Signs Vital Sign Reading Time Taken Comments Blood Pressure 100/62 06/15/2012 9:00 AM CDT Pulse 79 06/15/2012 9:00 AM CDT Temperature 36.6 C (97.8 F) 06/15/2012 9:00 AM CDT Respiratory Rate 20 09/12/2023 3:29 PM CDT Oxygen Saturation 99% 06/15/2012 9:00 AM CDT Inhaled Oxygen Concentration - - Weight 78.5 kg (173 lb) 09/12/2023 3:29 PM CDT Height 165.1 cm (5' 5) 09/12/2023 3:29 PM CDT Body Mass Index 28.79 09/12/2023 3:29 PM CDT Plan of Treatment Health Maintenance Due Date Last Done Comments Breast Cancer Screening-Mammogram 1965 Cervical Cancer Screening 1965 Colon Cancer Screening-Colonoscopy 1965 Depression Screening 1965 Hepatitis C Screening 1965 DTaP/Tdap/Td Vaccine (1 - Tdap) 05/05/1974 Hepatitis B Screening 05/05/1981 Regular Well Visit/Exam 18-64 05/05/1981 Zoster Vaccine (1 of 2) 05/05/2013 Covid-19 Vaccine (2023-2 5 season) 2023 01/27/2021, 02/17/2020, 01/27/2020 Influenza Vaccine (Season Ended) 2024 11/19/2021 Pneumococcal vaccine <65 Aged Out No longer eligible based on patient's age to complete this topic Insurance [facility] Care Teams Batch Unit Treater Relationship Specialty Start Date End Date Wei Mcdonald MD [address] [place] [address] PCP - General Emergency Medicine 02/18/22
--- OUTSIDE RECORDS SUMMARY | 2024-07-06 08:00 | XMS_ITS | Referral Summary ---
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
== END 2024-07-06 07:58 | disposition home or self-care (01) ==
LOC: ANHAUDIO 07:58
PROVIDERS: PCP Nurse Practitioner Adult Health; Visit Provider Nurse Practitioner Adult Health
DX: H90.3 Sensorineural hearing loss, bilateral (principal); H93.13 Tinnitus, bilateral
CPT/HCPCS: 92557; 92567

== ENCOUNTER 2024-10-03 08:03 | Outpatient (CLI) | payer BC, SELFPAY ==
--- OUTSIDE RECORDS SUMMARY | 2016-08-04 10:00 | XMS_ITS | Continuity of Care Document ---
Author Organization [facility] Address [address] [facility] [address] [facility] [address] [place] [address] Phone Care Team Providers Care Cement Tester Assistant Name Role Phone Tim Sexton MD Unavailable Unavailable Allergies, Adverse Reactions, Alerts Substance Reaction Status Criticality No Known Allergies Active No Inform ation Medications Medication Instructions Dosage Effective Dates (start - stop) Status Comments Zyrtec 10 mg tablet - Active OMEPRAZOLE (unknown strength) Not Available - Active Procedures Procedure Date Office/outpatient visit,[facility] 2016 Advance Directives Directive Yes / No Effective Date File Name No Information Encounters Encounter Description Practice Location Reason(s) For Visit Diagnoses Date Provider Providers Copied on Encounter Office/outpat ient visit,[facility], [address] [place] [address], [id number], tel:[phone] [facility] Right knee (chief complaint) Unilateral primary osteoarthrit is, right knee Darshan Dumont. [address] [place] [address], [place] [address], [place], [place], [id number] , [place]. tel:[phone] Family History Family Member Type Diagnosis Age At Onset Father Problem (finding) hypertension Sister Problem (finding) Cancer, unknown Father Problem (finding) Arthritis Payers Payer name Insurance type Covered libertarian ID Authornellia tisherice(s) [facility] CI [id number] Social History Type Description Quantity Date Captured Comments Alcohol Use Details Unknown Caffeine Use Details Unknown Tobacco Use Status Ex-smoker Smoking Status Former smoker Non-Smoking Tobacco Use Details : No Details Available : No Details Available Sex Female Vital Signs Date / Time: Height Weight BMI Pulse Rate Blood Pressure Temperature Respiratory Rate Body Surface Area Head Circumference Head Circ. Percentile Wt./Bar. Percentile BMI percentile Pulse Ox Inhaled Ox 3:48 PM 65.00 in 83.915 kg (185.00 lbs) 30.7 9 kg/m eter (2) Chief Complaint And Reason For Visit From encounter dated 08/04/2016 15:00'. Right knee (chief complaint). Description: Patient comes in today for right knee pain Reason For Referral Reason For Referral No Information History Of Present Illness Encounter Date Complaint History Of Prese nt Illness Right knee Patient comes in today for right knee pain Functional Status Date Functional Assessmen t No Information Instructions Date Instruction Additional Infor mation No Information Assessments Type Assessment Date assessment Unilateral primary osteoarthriti s, right knee Patient Care Teams Name Effective Dates (start - stop) Status Members No Information
--- OUTSIDE RECORDS SUMMARY | 2024-10-03 08:06 | XMS_ITS | Clinical Summary ---
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
[2024-10-03 19:19] LABS: Alanine Aminotransferase 15 U/L (6-35); Albumin Level 3.9 g/dL (3.5-5.1); Alkaline Phosphatase 83 U/L (38-126); Anion Gap 5 mmol/L (4-12); Aspartate Amino Transferase 51 U/L (14-36); Bilirubin,Total 0.2 mg/dL (0.2-1.3); Blood Urea Nitrogen 18 mg/dL (7-17); Calcium 8.5 mg/dL (8.4-10.2); Carbon Dioxide 28 mmol/L (22-30); Chloride 105 mmol/L (98-107); Cholesterol 177 mg/dL (0-200); Estimated Glomerular Filt Rate > 60; Glucose 93 mg/dL (65-110); HDL Direct 62 mg/dL; Potassium 4.4 mmol/L (3.4-5.0); Sodium 138 mmol/L (137-145); Total Protein 6.6 g/dL (6.3-8.2); Triglycerides 77 mg/dL (<150)
[2024-10-03 19:22] LABS: Hematocrit 41.7 % (37.0-47.0); Hemoglobin 12.8 g/dL (12.0-15.0); Mean Corpuscular HGB Conc 30.7 g/dl (32-36); Mean Corpuscular Hemoglobin 29.0 pg (26-34); Mean Corpuscular Volume 94.6 fl (80-100); Platelet Count Result 334 k/mm3 (150-375); Red Blood Count 4.41 M/mm3 (4.2-5.4); White Blood Count 6.5 K/mm3 (4.5-10.0)
[2024-10-03 19:24] LABS: Hemoglobin A1C 5.4 % (<5.7)
[2024-10-03 19:55] LABS: Thyroid Stimulating Hormone 2.180 uIU/mL (0.465-4.680)
[2024-10-03 20:14] LABS: Vitamin B12 262.0 pg/mL (239-931)
== END 2024-10-03 08:04 | disposition home or self-care (01) ==
PROVIDERS: PCP Nurse Practitioner Adult Health; Visit Provider Nurse Practitioner Adult Health
DX: Z12.31 Encounter for screening mammogram for malignant neoplasm of breast (principal); M83.9 Adult osteomalacia, unspecified; Z51.81 Encounter for therapeutic drug level monitoring; Z79.899 Other long term (current) drug therapy
CPT/HCPCS: 36415; 80053; 80061; 82306; 82607; 83036; 84443; 85027

== ENCOUNTER 2025-01-22 07:39 | Outpatient (CLI) | payer BC, SELFPAY ==
--- NOTE | ~2025-01-22 | MM_ITS ---
EXAMINATION: MM screening vickie BI w savanah HISTORY: Screening TECHNIQUE: Craniocaudal and mediolateral oblique 3-D tomosynthesis images were obtained and synthetic 2-D images were generated. CAD analysis was submitted and interpreted. COMPARISON: Comparison to multiple prior studies sequentially, with oldest reviewed study dated , 04/04/2019 BREAST PARENCHYMAL COMPOSITION: Not Dense: There are scattered areas of fibroglandular density. FINDINGS: There is no evidence of suspicious mass, calcification, or architectural distortion to suggest malignancy in either breast. IMPRESSION: 1. No mammographic evidence of malignancy. 2. Recommend routine screening mammography in one year. BI-RADS Category 1: Negative Reviewed, dictated and finalized at location A. DDING MACHINE KNIFE CHANGER
--- OUTSIDE RECORDS SUMMARY | 2025-01-22 07:42 | XMS_ITS | Clinical Summary ---
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
== END 2025-01-22 07:40 | disposition home or self-care (01) ==
LOC: ANHFOHIMG 07:40
PROVIDERS: PCP Nurse Practitioner Adult Health; Visit Provider Obstetrics & Gynecology
DX: Z12.31 Encounter for screening mammogram for malignant neoplasm of breast (principal)
CPT/HCPCS: 77063; 77067